=== PATIENT | male | born 1960 | race Caucasian/White ===

== ENCOUNTER 2016-05-19 12:38 | Emergency (ER) | payer BC ==
[2016-05-19 12:47] VITALS: BP 153/100
[2016-05-19] MEDS ORDERED: ONDANSETRON 4 MG TAB.RAPDIS PO ONE (13:12)
--- NOTE | 2016-05-19 13:13 | ERNOTE ---
Medical Problem HPI - Narrative Date of Service: 05/19/16 - General Chief Complaint: Nausea/Vomiting Time Seen by Provider: 05/19/16 12:53 Source: patient - Immun/Allergies/Home Medications Immunizations: IMMUNIZATION HX Immunizations Up to Date Yes History of Influenza Vaccine No Hx Pneumococcal Vaccination No Allergies/Adverse Reactions: Allergies No Known Allergies Allergy (Verified 05/19/16 12:47) Home Medications: HOME MEDICATIONS Aspirin [Aspirin Enteric Coated] 81 mg PO DAILY 09/21/15 [Last Taken Unknown] Ibuprofen [Motrin] 400 mg PO Q6H PRN 09/21/15 [Last Taken Unknown] Lansoprazole [Prevacid] 15 mg PO DAILY 09/21/15 [Last Taken Unknown] Lisinopril [Zestril] 5 mg PO DAILY 09/21/15 [Last Taken Unknown] Naproxen [Naprosyn] 500 mg PO BID #60 tablet 05/19/16 [Last Taken Unknown] Ondansetron [Zofran Odt] 4 mg PO Q6H PRN #20 tab 05/19/16 [Last Taken Unknown] - History of Present History Narrative: Pt presents with body aches, sore throat and nausea. Onset was this morning and it is fluctuating in intensity. Timing: intermittent Severity: moderate Review of Systems - Review of Systems Constitutional: Present: See HPI EYE: Present: no symptoms reported ENT: Present: nose congestion, sore throat Respiratory: Present: no symptoms reported Cardiology: Present: no symptoms reported Gastrointestinal/Abdominal: Present: no symptoms reported Genitourinary: Present: no symptoms reported Musculoskeletal: Present: no symptoms reported Skin: Present: no symptoms reported Neurological: Present: no symptoms reported Endocrine: Present: no symptoms reported Hematologic/Lymphatic: Present: no symptoms reported Psych: Present: no symptoms reported - Patient's Past Medical History Patient History - Medical: GERD Patient History - Cardiac/Respiratory: Hypertension Patient History - Cancer: No Hx of Cancer Patient History - Surgical Procedures: Vasectomy - Family History Father Family History - Medical: , No pertinent hx Family History - Cardiac/Respiratory: No pertinent hx Mother Family History - Medical: , No pertinent hx Family History - Cardiac/Respiratory: No pertinent hx - Social History Living Situations: home Smoking Status: Former smoker Have you smoked in the past 12 months: No Do you dip or chew tobacco: Yes Alcohol Use: occasionally Drug Use: none Physical Exam - Physical Exam General Appearance: Present: wd/wn, alert, mild distress Eye Exam: Normal inspection: bilateral, PERRL: bilateral Ears, Nose, Throat: Present: normal ENT inspection, hearing grossly normal, nasal congestion, other - cobblestone pharynx Neck: Present: normal inspection, nontender Respiratory: Present: no respiratory distress, normal breath sounds, no accessory muscle use, chest nontender, lungs clear Cardiovascular/Chest: Present: regular rate, rhythm, no murmur, normal peripheral pulses Gastrointestinal/Abdominal: Present: normal bowel sounds, nontender, nondistended, soft, no organomegaly Rectal Exam: Present: deferred Back Exam: Present: normal inspection, normal range of motion Extremity Exam: Present: normal inspection, non-tender, no edema, normal range of motion Neurological Exam: Present: alert, oriented, normal mood/affect Skin Exam: Present: normal color, warm/dry Lymphatic Exam: Present: no adenopathy ED Progress - Results and Orders Patient's Lab Results:: I have reviewed the patient's lab results. - Vital Signs Patient's Vital Signs:: I have reviewed the patient's vital signs. Vital Signs: Vital Signs 05/19/16 12:44 Temperature 36.0 C L Pulse Rate 68 Respiratory 14 Rate Blood Pressure 153/100 O2 Sat by Pulse 96 Oximetry - Progress/Reassessment Chief Complaint: Nausea/Vomiting Progress:: Improved - Transfer of Care Expected Disposition: Discharge Departure - Departure Clinical Impression: Viral syndrome Disposition: Home self-care Instructions: Viral Respiratory Infection, [id number] Referrals: Romelia Esqueda MD [Primary Care Provider] - Prescriptions: Naproxen [Naprosyn] 500 mg PO BID #60 tablet Ondansetron [Zofran Odt] 4 mg PO Q6H PRN #20 tab PRN Reason: Nausea And Vomiting
[2016-05-19] MEDS ORDERED: ONDANSETRON 4 MG TAB.RAPDIS ONE (13:17)
== END 2016-05-19 13:53 | disposition home or self-care (01) ==
LOC: ER 12:38
DX: B34.9 Viral infection, unspecified (principal); Z87.891 Personal history of nicotine dependence; K21.9 Gastro-esophageal reflux disease without esophagitis

== ENCOUNTER 2017-03-02 16:34 | Observation (INO) | payer BC ==
[2017-03-02] MEDS ORDERED: ASPIRIN 81 MG TAB.CHEW PO ONE (19:02)
--- NOTE | 2017-03-02 19:10 | ERNOTE ---
Medical Problem HPI - Narrative Date of Service: 03/02/17 - General Chief Complaint: Chest Pain Time Seen by Provider: 03/02/17 18:55 Source: patient Exam Limitations: no limitations - Immun/Allergies/Home Medications Immunizations: IMMUNIZATION HX Immunizations Up to Date Yes History of Influenza Vaccine No Hx Pneumococcal Vaccination No Allergies/Adverse Reactions: Allergies No Known Allergies Allergy (Verified 03/02/17 17:04) Home Medications: HOME MEDICATIONS Aspirin [Aspirin Enteric Coated] 81 mg PO DAILY 09/21/15 [Last Taken Unknown] Lansoprazole [Prevacid] 15 mg PO DAILY 09/21/15 [Last Taken Unknown] Lisinopril [Zestril] 10 mg PO DAILY 09/21/15 [Last Taken Unknown] - History of Present History Narrative: Pt. comes in with c/o not feeling right for 5 hours. Pt. states that his L chest feels heavy, and he is weak with mild SOB and mild nausea. Pt. denies any recent illness, vomiting, diarrhea, cough, nasal congestion, fever, alleviaitng factors, aggravating factors, but states that he took a baby aspirin today. Review of Systems - Review of Systems Constitutional: Present: weakness, fatigue, malaise. Absent: recent illness, fever, chills EYE: Present: no symptoms reported ENT: Present: no symptoms reported Respiratory: Present: shortness of breath. Absent: cough, wheezing Cardiology: Present: chest pain. Absent: palpitations, edema Gastrointestinal/Abdominal: Present: nausea. Absent: vomiting, diarrhea, abdominal pain Genitourinary: Present: no symptoms reported Musculoskeletal: Present: no symptoms reported. Absent: back pain, joint pain Skin: Present: no symptoms reported Neurological: Present: weakness. Absent: headache, dizziness/light-headedness, numbness, tingling All Other Systems: All systems neg except as marked - Patient's Past Medical History Patient History - Medical: GERD Patient History - Cardiac/Respiratory: Hypertension Patient History - Cancer: No Hx of Cancer Patient History - Surgical Procedures: Vasectomy Patient History - Other: None - Family History Father Family History - Medical: , No pertinent hx Family History - Cardiac/Respiratory: No pertinent hx Mother Family History - Medical: , No pertinent hx Family History - Cardiac/Respiratory: No pertinent hx - Social History Living Situations: home Abuse History: No History of abuse Psych History: No pertinent hx Alcohol Use: none Drug Use: none - Immunizations Immunizations Up to Date: Yes Hx Pneumococcal Vaccination: No History of Influenza Vaccine: No Physical Exam - Physical Exam General Appearance: Present: wd/wn, alert, no apparent distress Head Exam: Present: normal inspection, no evidence of injury Eye Exam: Normal inspection: bilateral, PERRL: bilateral, EOMI: bilateral Ears, Nose, Throat: Present: normal ENT inspection, normal pharynx Neck: Present: normal inspection, nontender. Absent: lymphadenopathy (R), lymphadenopathy (L) Respiratory: Present: no respiratory distress, normal breath sounds, no accessory muscle use, chest nontender, lungs clear. Absent: chest tenderness Cardiovascular/Chest: Present: regular rate, rhythm, no murmur, normal peripheral pulses Gastrointestinal/Abdominal: Present: normal bowel sounds, nontender, nondistended, soft, no organomegaly Back Exam: Present: normal inspection Extremity Exam: Present: normal inspection Neurological Exam: Present: alert, oriented, normal mood/affect, no motor/ sensory deficits, bushel girl II-XII nml as tested, normal cerebellar test Skin Exam: Present: warm/dry, pallor. Absent: skin rash ED Progress - Date and Time Seen: Date and Time: 03/02/17 19:54 Discussed with Caio and as pt. pain is not reproducible and does not seem to be GI related feel that this is most likely cardiac and she accepts admission for chest pain R/O [place] - Results and Orders Patient's Lab Results:: I have reviewed the patient's lab results. - Vital Signs Patient's Vital Signs:: I have reviewed the patient's vital signs. Vital Signs: Vital Signs 03/02/17 16:58 Temperature 36.2 C L Pulse Rate 74 Respiratory 12 Rate Blood Pressure 135/90 O2 Sat by Pulse 96 Oximetry - Progress/Reassessment Chief Complaint: Nausea/Vomiting Departure Clinical Impression: Chest pain Qualifiers: Chest pain type: unspecified Qualified Code(s): R07.9 - Chest pain, unspecified - Departure Disposition: [facility] Condition: Fair
[2017-03-02] MEDS ORDERED: ASPIRIN 81 MG TAB.CHEW ONE (19:15)
[2017-03-02] MEDS: NITROGLYCERIN 0.4 MG/TAB BTL SL PRN ×2 (19:18→19:50)
[2017-03-02 19:22] LABS: Hematocrit 45.3 % (42.0-52.0); Hemoglobin 15.5 gm/dL (13.5-18.0); Mean Corpuscular Hemoglobin 30.1 pg (27-31); Mean Corpuscular Hgb Conc 34.2 g/dl (32-36); Mean Platelet Volume 8.7 fl (6.0-9.5); Neutrophil # 4.2 K/mm3 (1.3-6.0); Platelet Count 251 K/mm3 (150-450); Red Blood Count 5.15 M/mm3 (4.7-6.0); Red Cell Distribution Width 12.6 % (11.5-14.0)
[2017-03-02 19:39] LABS: Partial Thrombolplastin Time 27.3 Seconds (24-32)
[2017-03-02 19:41] LABS: ALT 66 U/L (19-67); AST 29 U/L (0-48); Albumin * 3.8 gm/dl (3.4-5.0); Alkaline Phosphatase * 90 U/L (50-170); Anion Gap 12.4 mmol/L (6.8-13.8); BUN/Creatinine Ratio 16.3 (9.0-21.6); Bilirubin, Total 1.2 mg/dL (0.0-1.1); Blood Urea Nitrogen 20 mg/dL (6-23); Ca. Corrected For Albumin 8.8 mg/dL (8.4-10.2); Carbon Dioxide 28.5 mmol/L (24-32.6); Chloride 101 mmol/L (97-106); Glucose * 102 mg/dL (70-110); Potassium 4.9 mmol/L (3.4-4.6); Sodium 137 mmol/L (132-142); Total Protein 7.7 gm/dL (6.2-8.2)
[2017-03-02 19:43] LABS: Troponin I Less than 0.017 ng/ml (0.00-0.10)
[2017-03-02] MEDS ORDERED: guaiFENesin/DEXTROMETHORPHAN 118 ML BTL PO PRN (21:00)
[2017-03-02] MEDS ORDERED: NICOTINE 21 MG PATC TD SCH (21:00)
[2017-03-02] MEDS ORDERED: ALBUTEROL SULFATE 2.5 MG/0.5 ML VIAL.NEB IH PRN (21:18)
--- NOTE | 2017-03-02 21:24 | HP ---
Chief Complaint - Chief Complaint Date of Service: 03/02/17 Time of Service: 20:41 Chief Complaint: chest pain History of Present Illness: 56 years old male adm to the hospital from ER with reports of substernal chest pain radiating to left arm.PMH significant for Hypertension, GERD and chews tobacco. Per before work today pt stated he was feeling nauseated. While at work he continue to feel nauseated, he was lifting a 50lb item when he had sudden onset of chest pain. The pain radiated to his left arm, with associated s /s shortness of breath. He denies diaphoresis, palpitation, vomiting, blurred vision or headache. stated he has a non productive cough that has been ongoing for over a month. Per pt has been having intermittent chest discomfort for several years and last stress test was in [place] 7yrs ago.In ER he was given nitro and aspirin, he report pain has since dissipated.Initial troponin 0.017---> serial troponin pending EKG No ST/T changes, will repeat EKG. CXR:Findings compatible with reactive airway disease vs acute on chronic bronchitis, may also consider COPD as pt with history of tobacco use.Will adm for observation, repeat EKG and serial cardiac markers. Plan of care discussed with pt and they verbalized understanding and agrees. - Patient's Past Medical History Patient History - Medical: GERD Patient History - Cardiac/Respiratory: Hypertension, Hyperlipidemia Patient History - Cancer: No Hx of Cancer Patient History - Surgical Procedures: Vasectomy, Orthopedic - Right knee orthoscopy Patient History - Other: None - Family History Father Family History - Medical: , No pertinent hx Family History - Cardiac/Respiratory: No pertinent hx Family History - Cancer: Stomach Mother Family History - Medical: , No pertinent hx Family History - Cardiac/Respiratory: No pertinent hx Family History - Cancer: Breast - Social History Living Situations: spouse Abuse History: No History of abuse Psych History: No pertinent hx Do you dip or chew tobacco: Yes - daily Alcohol Use: occasionally - 1-2 beers daily Drug Use: none - Immunizations Immunizations Up to Date: Yes Hx Pneumococcal Vaccination: No History of Influenza Vaccine: No Review Of Systems (GEN) - Review of Systems Generalized/Overall Review: Present: No Symptoms Reported EENTM: Present: No Symptoms Reported Respiratory: Present: Cough, Shortness of Breath - on exertion only Cardiac: Present: Chest Pain Abdominal: Present: Nausea Genitourinary: Present: No Symptoms Reported Musculoskeletal: Present: No Symptoms Reported Neurological: Present: No Symptoms Reported Skin: Present: No Symptoms Reported Endocrine: Present: No Symptoms Reported Immunizations: IMMUNIZATION HX Immunizations Up to Date Yes History of Influenza Vaccine No Hx Pneumococcal Vaccination No Allergies/Adverse Reactions: Allergies Allergy/AdvReac Type Severity Reaction Status Date / Time No Known Allergies Allergy Verified 03/02/17 17:04 Home Medications: HOME MEDICATIONS Aspirin [Aspirin Enteric Coated] 81 mg PO DAILY 09/21/15 [Last Taken Unknown] Lansoprazole [Prevacid] 15 mg PO DAILY 09/21/15 [Last Taken Unknown] Lisinopril [Zestril] 10 mg PO DAILY 09/21/15 [Last Taken Unknown] Exam - Exam Vital Signs: Vital Signs - Last Taken Temp 36.7 C 03/02/17 20:21 Pulse 63 03/02/17 20:21 Resp 17 03/02/17 20:21 BP 116/78 03/02/17 20:21 Pulse Ox 96 03/02/17 20:21 Constitutional: Present: Alert, Oriented x3, Cooperative, No distress ENT Exam: Present: normal ENT inspection Eye Exam: bilateral eye: normal inspection Neck: Present: full range of motion Breasts: Present: Exam deferred Respiratory: Present: chest non-tender, lungs clear, normal breath sounds, no respiratory distress Cardiovascular/Chest: Present: normal peripheral pulses, regular rate, rhythm, no edema, no gallop Peripheral Pulses: dorsalis-pedis (R): 3+, dorsalis-pedis (L): 3+ Abdomen: Present: Normal bowel sounds, soft, nontender, nondistended, no rebound tenderness /Rectal: Present: Exam deferred Extremity: Present: normal range of motion, non-tender, normal inspection Skin Exam: Present: normal color, warm/dry, no cyanosis Neurologic: Present: oriented x 3 Appearance: Present: appropriate appearance Eye contact: Present: cooperative Thoughts: Present: normal thought pattern Diagnostic Studies: Laboratory Results WBC 7.0 K/mm3 (4.0-10.5) 03/02/17 19:18 RBC 5.15 M/mm3 (4.7-6.0) 03/02/17 19:18 Hgb 15.5 gm/dL (13.5-18.0) 03/02/17 19:18 Hct 45.3 % (42.0-52.0) 03/02/17 19:18 MCV 88.0 fl (78-100) 03/02/17 19:18 MCH 30.1 pg (27-31) 03/02/17 19:18 MCHC 34.2 g/dl (32-36) 03/02/17 19:18 RDW 12.6 % (11.5-14.0) 03/02/17 19:18 Plt Count 251 K/mm3 (150-450) 03/02/17 19:18 MPV 8.7 fl (6.0-9.5) 03/02/17 19:18 Immature Gran % (Auto) 0.30 % (0.001-0.429) 03/02/17 19:18 Immature Gran # (Auto) 0.02 K/mm3 (0.000-0.0310) 03/02/17 19:18 Neutrophils % 61.0 % (42-75.0) 03/02/17 19:18 Lymphocytes % 26.2 % (20-51) 03/02/17 19:18 Monocytes % 10.2 % (0.0-9) H 03/02/17 19:18 Eosinophils % 1.4 % (0.0-3.0) 03/02/17 19:18 Basophils % 0.9 % (0.0-1.0) 03/02/17 19:18 Nucleated RBC % 0.0 k/mm3 (0-1) 03/02/17 19:18 Neutrophils # 4.2 K/mm3 (1.3-6.0) 03/02/17 19:18 Lymphocytes # 1.8 k/mm3 (1.5-3.5) 03/02/17 19:18 Monocytes # 0.7 k/mm3 (0.0-1.0) 03/02/17 19:18 Eosinophils # 0.1 k/mm3 (0.0-0.7) 03/02/17 19:18 Absolute Basophils 0.1 k/mm3 (0.0-0.1) 03/02/17 19:18 PT 10.0 Seconds (9.0-11.0) 03/02/17 19:18 INR (Anticoag Therapy) 1.00 INR (0.90-1.10) 03/02/17 19:18 PTT ([place]) 27.3 Seconds (24-32) 03/02/17 19:18 Sodium 137 mmol/L (132-142) 03/02/17 19:18 Plasma Sodium 137 mmol/L (130-142) 03/02/17 19:18 Potassium 4.9 mmol/L (3.4-4.6) H 03/02/17 19:18 Chloride 101 mmol/L (97-106) 03/02/17 19:18 Carbon Dioxide 28.5 mmol/L (24-32.6) 03/02/17 19:18 Anion Gap 12.4 mmol/L (6.8-13.8) 03/02/17 19:18 BUN 20 mg/dL (6-23) 03/02/17 19:18 Creatinine 1.23 mg/dL (0.4-1.4) 03/02/17 19:18 Est GFR (Non-Af Amer) 64 mL/min (60-130) 03/02/17 19:18 BUN/Creatinine Ratio 16.3 (9.0-21.6) 03/02/17 19:18 Random Glucose 102 mg/dL (70-110) 03/02/17 19:18 Calcium 9.0 mg/dL (7.9-10.9) 03/02/17 19:18 Calcium Adj for Albumin 8.8 mg/dL (8.4-10.2) 03/02/17 19:18 Total Bilirubin 1.2 mg/dL (0.0-1.1) H 03/02/17 19:18 AST 29 U/L (0-48) 03/02/17 19:18 ALT 66 U/L (19-67) 03/02/17 19:18 Alkaline Phosphatase 90 U/L (50-170) 03/02/17 19:18 Troponin I Less than 0.017 ng/ml (0.00-0.10) 03/02/17 19:18 Total Protein 7.7 gm/dL (6.2-8.2) 03/02/17 19:18 Albumin 3.8 gm/dl (3.4-5.0) 03/02/17 19:18 CXR: findings compatible with reactive airway disease vs acute on chronic bronchitis, may also consider COPD Assessment/Plan - Narrative Narrative: Chest pain-probable muscular-skeletal stain from consistent cough pt stated he was having chest pain and shortness of breath with exertion while at work. He was lifting approximately 50lb item when he had sudden onset of chest pain Per pt have been having chest discomfort for several years and last stress test was in [place] 7yrs ago In ER he was given nitro and aspirin, he report pain has since dissipated. Initial troponin 0.017---> serial troponin pending EKG No ST/T changes, will repeat EKG CXR:Findings compatible with reactive airway disease vs acute on chronic bronchitis, may also consider COPD Bronchitis vs COPD Per pt been having a non-productive cough over a month pt hx of chewing tobacco CXR:Findings compatible with reactive airway disease vs acute on chronic bronchitis, may also consider COPD Initiated Robitussin and albuterol PRN Hypertension- stable On adm BP 116/78 Monitor vs q shift and PRN as indicated May resume home dose of medications Hyperlipidemia Lipid panel pending pt stated he was taken off medications and using diet management GERD May resume home medication Substance abuse chew tobacco Cessation edu Nicotine patch Code status: Full GI ppx: Pepcid VTE ppx: Ambulate Time 40 minutes and case discussed with Dr Antunez May consider out-pt stress test upon discharge - Assessment/Plan (1) Bronchitis Problem: Acute (2) Chest pain Problem: Acute Qualifiers: Chest pain type: unspecified Qualified Code(s): R07.9 - Chest pain, unspecified (3) Hypertension Problem: Acute (4) Hyperlipidemia Problem: Acute
[2017-03-03 06:10] LABS: Chol/HDL Risk Ratio 4.6 mg/dL (3.3-5.0); Cholesterol 211 mg/dL (0-200); HDL Cholesterol 45 mg/dL (40-60); LDL Cholesterol 148 mg/dL (70-130); Triglycerides 92 mg/dL (30-200); VLDL Cholesterol 18 mg/dL (5-40)
[2017-03-03 06:15] LABS: Troponin I Less than 0.017 ng/ml (0.00-0.10)
[2017-03-03] MEDS ORDERED: PANTOPRAZOLE SODIUM 20 MG TABLET.DR PO SCH (07:00)
[2017-03-03 07:46] VITALS: BP 141/85
[2017-03-03] MEDS ORDERED: LISINOPRIL 5 MG TABLET PO SCH (09:00)
[2017-03-03] MEDS ORDERED: LISINOPRIL 10 MG TABLET PO SCH (09:00)
[2017-03-03] MEDS ORDERED: ASPIRIN 81 MG TABLET.DR PO SCH (09:00)
--- NOTE | 2017-03-03 09:02 | DS ---
(1) Chest pain Problem: Acute Qualifiers: Chest pain type: unspecified Qualified Code(s): R07.9 - Chest pain, unspecified Description of Stay: ADMISSION DATE: 03/02/2017 DISCHARGE DATE: 03/03/2017 ADMISSION HPI KAYE Valdivia: 56 years old male adm to the hospital from ER with reports of substernal chest pain radiating to left arm.PMH significant for Hypertension, GERD and chews tobacco. Per before work today pt stated he was feeling nauseated. While at work he continue to feel nauseated, he was lifting a 50lb item when he had sudden onset of chest pain. The pain radiated to his left arm, with associated s /s shortness of breath. He denies diaphoresis, palpitation, vomiting, blurred vision or headache. stated he has a non productive cough that has been ongoing for over a month. Per pt has been having intermittent chest discomfort for several years and last stress test was in [place] 7yrs ago.In ER he was given nitro and aspirin, he report pain has since dissipated.Initial troponin 0.017---> serial troponin pending EKG No ST/T changes, will repeat EKG. CXR:Findings compatible with reactive airway disease vs acute on chronic bronchitis, may also consider COPD as pt with history of tobacco use.Will adm for observation, repeat EKG and serial cardiac markers. Plan of care discussed with pt and they verbalized understanding and agrees. HOSPITAL COURSE: The patient was admitted to the hospital, observation status, for chest pain which is felt to be most likely musculoskeletal in nature. The patient was monitored on telemetry overnight and his cardiac enzymes were trended and unremarkable. EKG was also unremarkable for acute signs of ischemia. The patient was discharged home in stable condition and instructed to complete a standard treadmill exercise stress test next week. The patient was also instructed to follow up with his primary care physician within the next week. FOLLOW-UP APPOINTMENTS: -Regular Exercise Stress Test as an outpatient -Follow-up with PCP, Lidia Esqueda, within 1 week NEW OR CHANGED MEDICATIONS: None DISCONTINUED MEDICATIONS: None RADIOLOGY REPORTS: PA and lateral chest x-ray on 03/02/2017 showed: Findings compatible with acute or chronic bronchitis versus reactive airway disease. Also considered COPD/ emphysema, if the patient has history of smoking. No focal findings. Procedures Performed: none Results and Findings: Laboratory Tests 03/02/17 03/02/17 03/02/17 19:18 19:18 19:18 WBC 7.0 Hgb 15.5 Hct 45.3 Plt Count 251 PT 10.0 INR (Anticoag Therapy) 1.00 PTT ([place]) 27.3 Plasma Sodium 137 Potassium 4.9 H Chloride 101 Carbon Dioxide 28.5 Anion Gap 12.4 BUN 20 Creatinine 1.23 Est GFR (Non-Af Amer) 64 BUN/Creatinine Ratio 16.3 Random Glucose 102 Calcium 9.0 Calcium Adj for Albumin 8.8 Total Bilirubin 1.2 H AST 29 ALT 66 Alkaline Phosphatase 90 Troponin I Less than 0.017 Total Protein 7.7 Albumin 3.8 Triglycerides Cholesterol LDL Cholesterol VLDL Cholesterol HDL Cholesterol Cholesterol/HDL Ratio 03/03/17 03/03/17 00:52 05:35 WBC Hgb Hct Plt Count PT INR (Anticoag Therapy) PTT ([place]) Plasma Sodium Potassium Chloride Carbon Dioxide Anion Gap BUN Creatinine Est GFR (Non-Af Amer) BUN/Creatinine Ratio Random Glucose Calcium Calcium Adj for Albumin Total Bilirubin AST ALT Alkaline Phosphatase Troponin I Less than 0.017 Less than 0.017 Total Protein Albumin Triglycerides 92 Cholesterol 211 H LDL Cholesterol 148 H VLDL Cholesterol 18 HDL Cholesterol 45 Cholesterol/HDL Ratio 4.6 Discharge Disposition: Home self care Disposition: Home self-care Condition: Stable Discharge Activity: Activity as tolerated Discharge Diet: General/regular food, Resume usual diet Problem Oriented Discharge Instructions to Patient/Family: Chest Wall Pain, [id number] Additional Patient Instructions (free text): -Regular Exercise Stress Test as an outpatient on 03/07/17 at 8:00am. -Follow-up with PCP, Lidia Esqueda, within 1 week Complete Home Medications List: Complete Home Medication List: Aspirin [Aspirin Enteric Coated] 81 mg PO DAILY 09/21/15 Lansoprazole [Prevacid] 15 mg PO DAILY 09/21/15 Lisinopril [Zestril] 10 mg PO DAILY 09/21/15 Amb Orders for Discharge: Regular Exercise Stress Test Location: Determined By Patient
[2017-03-03] MEDS ORDERED: REMOVE PATCH 1 PATCH PATCH TP SCH (21:00)
[2017-03-03] MEDS ORDERED: SIMVASTATIN 20 MG TABLET PO SCH (21:00)
== END 2017-03-03 10:18 | disposition home or self-care (01) ==
LOC: ER 16:34 → AMB 19:04 → MS 19:57
PROVIDERS: ADMIT Nurse Practitioner; ATTEND Internal Medicine
DX: R07.89 Other chest pain (principal); J41.0 Simple chronic bronchitis; F17.220 Nicotine dependence, chewing tobacco, uncomplicated; I10 Essential (primary) hypertension; K21.9 Gastro-esophageal reflux disease without esophagitis; E78.5 Hyperlipidemia, unspecified
CPT/HCPCS: 36415; 71020; 80053; 80061; 84484; 85025; 85610; 85730; 93005; 99285; G0378

== ENCOUNTER 2017-03-06 10:43 | Emergency (ER) | payer BC ==
--- NOTE | 2017-03-06 14:15 | ERNOTE ---
Abdominal HPI - Narrative Date of Service: 03/06/17 - General Chief Complaint: Abdominal Pain Time Seen by Provider: 03/06/17 14:06 Source: patient Exam Limitations: no limitations - Immun/Allergies/Home Medications Immunizatons: IMMUNIZATION HX Immunizations Up to Date Yes History of Influenza Vaccine No Hx Pneumococcal Vaccination No Allergies/Adverse Reactions: Allergies No Known Allergies Allergy (Verified 03/06/17 10:53) Home Medications: HOME MEDICATIONS Aspirin [Aspirin Enteric Coated] 81 mg PO DAILY 09/21/15 [Last Taken Unknown] Lansoprazole [Prevacid] 15 mg PO DAILY 09/21/15 [Last Taken Unknown] Lisinopril [Zestril] 10 mg PO DAILY 09/21/15 [Last Taken Unknown] Lansoprazole [Prevacid] 30 mg PO DAILY #14 cap 03/06/17 [Last Taken Unknown] Sucralfate [Carafate Suspension] 1 g PO ACHS 14 Days #560 ml 03/06/17 [Last Taken Unknown] - Pain Score Pain Score #1 Pain Score: 3 Abdominal Pain Onset Location: epigastric Pain Radiation: no radiation Pain Score #2 Pain Score: 3 Abdominal Pain Onset Location: other - L. anterior chest Pain Radiation: no radiation - History of Present Illness Narrative: 56yo, M, presents to ER with epigastric pain described as a burning sensation, he notes he has also felt some reflux come up his esophagus today. Symptoms intermittent for the past week, along with nausea and decreased appetite. notes abd bloating for several months, but has noted the abd to appear more distended over the past week. He also reports a pins and needles pain to his L. anterior chest, which has been present since 03/02/17. He describes this pain as mostly constant, but does improve at times.He was admitted to [facility] for observation to r/o cardiac event. Trop neg t/o hospital stay. Pain present at discharge and denies any worsening of pain since discharge. Date (Duration): 03/03/17 Timing: intermittent Modifying Factors - (Improves): Present: antacids - Tums (improvement for short time) Modifying Factors - (Worsens): Present: eating, lying down - worsens epigastric pain, movement - of arms, back and position changes worsens L. chest wall pain Associated Symptoms: Present: chest pain - L. anterior chest, heartburn, nausea , swelling/mass in abdomen. Absent: back pain, neck pain, diaphoresis, diarrhea -gross blood, vomiting, shortness of breath, syncope Prior Abdominal Problems: Present: none Prior Treatment: Present: recently hospitalized Review of Systems - Review of Systems Constitutional: Present: fatigue - chronic . Absent: fever, weakness ENT: Absent: ear pain, nose congestion, sore throat Respiratory: Present: cough. Absent: shortness of breath, orthopnea, wheezing Cardiology: Present: chest pain - L. chest. Absent: palpitations, syncope, edema Gastrointestinal/Abdominal: Present: nausea, abdominal pain. Absent: vomiting, diarrhea, constipation Genitourinary: Absent: frequency, pain, dysuria, hematuria Musculoskeletal: Absent: back pain Skin: Absent: rash - Patient's Past Medical History Patient History - Medical: GERD Patient History - Cardiac/Respiratory: Hypertension, Hyperlipidemia Patient History - Cancer: No Hx of Cancer Patient History - Surgical Procedures: Vasectomy, Orthopedic Patient History - Other: None - Family History Father Family History - Medical: , No pertinent hx Family History - Cardiac/Respiratory: No pertinent hx Family History - Cancer: Stomach Mother Family History - Medical: , No pertinent hx Family History - Cardiac/Respiratory: No pertinent hx Family History - Cancer: Breast - Social History Living Situations: home Abuse History: No History of abuse Psych History: No pertinent hx - Immunizations Immunizations Up to Date: Yes Hx Pneumococcal Vaccination: No History of Influenza Vaccine: No Physical Exam - Physical Exam General Appearance: Present: wd/wn, alert, no apparent distress Neck: Present: normal inspection Respiratory: Present: normal breath sounds, lungs clear, decreased breath sounds - mild. Absent: chest tenderness, crackles, rhonchi, wheezing Cardiovascular/Chest: Present: regular rate, rhythm, no murmur Gastrointestinal/Abdominal: Present: normal bowel sounds, tenderness - LLQ, LUQ , epigastric, distended. Absent: rebound, McBurney sign Back Exam: Present: normal inspection, normal range of motion - denies pain with ROm, no CVA tenderness ED Progress - Date and Time Seen: Date and Time: 03/06/17 17:51 Reviewed xray, lab and CT results with pt. CT was performed due to concern for diverticulitis with LLQ pain, along with abd distention, which noted had been increasing over the last few months. Reviewed fatty liver infiltrates and need to f/u with his PCP. Pt v/u. He does note he has been using Ibuprofen, discussed that this could worsen symptoms and to avoid at this time. - Results and Orders Patient's Lab Results:: I have reviewed the patient's lab results. - Vital Signs Patient's Vital Signs:: I have reviewed the patient's vital signs. Vital Signs: Vital Signs 03/06/17 10:49 Temperature 36.7 C Pulse Rate 85 Respiratory 12 Rate Blood Pressure 126/83 O2 Sat by Pulse 97 Oximetry - X-Ray X-Ray #1 X-Ray: chest Interpretation: Reviewed by me X-ray Comments: [facility] PATIENT RADIOLOGY STUDY REPORT Patient Patient Name:KELLY GUTIERREZ Date: 1960 Sex: M Order Number: [id number] Unique Exam ID: [id number] Exam Requested: CXRPALAT - Chest PA Lateral * Date Scheduled: 03-06-2017 02:20 PM Study Priority: Requesting Service: Requesting Physician: Kayleigh Martínez Reason for Exam: cough, L. anterior chest pain Radiological Report : [facility] [address] [place] [address] NAME: KELLY GUTIERREZ : 1960 MR #: [id number] CC: Romelia Esqueda MD LOC: [facility] DATE: X-RAY REPORT [id number] RAD/Chest PA Lateral * Exam Date: 03/06/2017 14:20 Ordering Physician: Kayleigh Martínez HISTORY: cough, L. anterior chest pain TWO VIEW CHEST Comparison: 03/02/2017 Technique: Upright frontal and lateral views of the chest were obtained. Findings: The cardiac silhouette is within normal limits of size. The mediastinum and hilum are with in normal limits. The lung benavides are clear. I do not see evidence for an infiltrate, effusion or pulmonary edema. IMPRESSION: 1. STABLE CHEST; NO ACUTE CARDIOPULMONARY PROCESS. Electronically signed by Jesus García M.D.. Jesus García MD Dict: 03/06/17 1629 Typed: 03/06/17 1629/ 03/06/17 1631 03/06/17 1634 , Approved by: Jesus García Approval Date: 03-06-2017 Approval Time: 04:29 PM THIS REPORT WAS RECEIVED FROM THE [employer] [facility] - CT/Ultrasound CT/Ultrasound Narrative: [facility] PATIENT RADIOLOGY STUDY REPORT Patient Patient Name:KELLY GUTIERREZ Date: 1960 Sex: M Order Number: [id number] Unique Exam ID: [id number] Exam Requested: ABDPELW - CT Abdomen/Pelvis W/C * Date Scheduled: 03-06-2017 02:21 PM Study Priority: Requesting Service: Requesting Physician: Kayleigh Martínez Reason for Exam: abd pain, LLQ tenderness Radiological Report : [place] [address] NAME: KELLY GUTIERREZ : 1960 MR #: [id number] CC: Romelia Esqueda MD LOC: ER ADM DATE: X-RAY REPORT [id number] CT/CT Abdomen/Pelvis W/C * Exam Date: 03/06/2017 14:21 Ordering Physician: Kayleigh Martínez HISTORY: Midline to left lower quadrant pain and tenderness for four days EN[address] CT SCAN OF THE ABDOMEN AND ENHANCED CT SCAN OF THE PELVIS. COMPARISON: NONE Technique: Initially, multiple axial images were obtained through the abdomen during the portal venous phase of enhancement. Delayed images were obtained through the abdomen and pelvis. Coronal reconstructions were obtained. Oral contrast was utilized. Individualized dose optimization technique was used for the performed procedure including automated exposure control, adjustment of the mA and/or kV according to patient size and/or the iterative reconstruction technique. Findings: The visualized lung bases are clear. I do not see evidence for free air in the abdomen. The liver demonstrates a somewhat geographic low-density pattern involving the right lobe. This may reflect asymmetric fatty infiltration but other etiologies cannot be totally excluded. Clinical correlation required. The portal vein, superior mesenteric vein, and splenic vein appear to be normally opacified. A gallbladder is in place and I do not see evidence for calcified gallstones. The spleen is of normal size and is homogenous in appearance. The adrenal glands are within normal limits. The pancreas is with in normal limits. The abdominal aorta is of normal caliber. I do not see evidence for retroperitoneal adenopathy on this study. There is a small fat- containing umbilical hernia. The right and left renal parenchyma is normal in appearance. The kidneys demonstrate bilateral symmetric excretion of contrast and the ureters are of normal caliber on delayed images. The stomach is partially distended and is grossly normal appearance. The small bowel is of normal caliber. The appendix is identified and appears normal. The colon is suboptimally evaluated, but I' m not convinced of a definable colon lesion. There is mild diverticulosis involving the descending colon without definable diverticulitis CT scan of pelvis: The urinary bladder is poorly distended and is grossly normal in appearance. The prostate is not enlarged. IMPRESSION: 1. GEOGRAPHIC LOW DENSITY PATTERN TO THE RIGHT LOBE LIVER, WHICH I SUSPECT REFLECTS FATTY INFILTRATION. CLINICAL CORRELATION IS REQUIRED. 2. SMALL FAT-CONTAINING UMBILICAL HERNIA. 3. MILD DIVERTICULOSIS INVOLVING DESCENDING COLON WITHOUT DEFINABLE DIVERTICULITIS. 4. CLINICAL CORRELATION REQUIRED Electronically signed by Jesus García M.D.. Jesus García MD Dict: 03/06/17 1634 Typed: 03/06/17 1634/ 03/06/17 1646 03/06/17 1649 , Approved by: Jesus García Approval Date: 03-06-2017 Approval Time: 04:34 PM THIS REPORT WAS RECEIVED FROM THE [employer] [facility] - Progress/Reassessment Chief Complaint: Abdominal Pain Progress:: Improved Departure Clinical Impression: Gastritis Qualifiers: Gastritis type: unspecified gastritis Chronicity: acute Gastritis bleeding: without bleeding Qualified Code(s): K29.00 - Acute gastritis without bleeding - Departure Disposition: Home self-care Condition: Good Instructions: Gastritis, Adult, [id number] Additional Instructions: [place] diet for the next several days Avoid use of Ibuprofen Increase Prevacid to 30mg daily for the next 2 weeks Schedule follow up with your primary care doctor for re-evaluation and follow up on CT results Referrals: Romelia Esqueda MD [Primary Care Provider] - Prescriptions: Lansoprazole [Prevacid] 30 mg PO DAILY #14 cap Sucralfate [Carafate Suspension] 1 g PO ACHS 14 Days #560 ml
[2017-03-06] MEDS ORDERED: DIATRIZOATE MEGLUMINE, SODIUM 30 ML BTL PO ONE (14:31)
[2017-03-06 14:33] LABS: Hematocrit 47.1 % (42.0-52.0); Hemoglobin 15.9 gm/dL (13.5-18.0); Mean Cell Volume 88.4 fl (78-100); Mean Corpuscular Hemoglobin 29.8 pg (27-31); Mean Corpuscular Hgb Conc 33.8 g/dl (32-36); Mean Platelet Volume 8.8 fl (6.0-9.5); Neutrophil # 6.2 K/mm3 (1.3-6.0); Neutrophil % 66.2 % (42-75.0); Platelet Count 262 K/mm3 (150-450); Red Blood Count 5.33 M/mm3 (4.7-6.0); Red Cell Distribution Width 12.7 % (11.5-14.0); White Blood Count 9.4 K/mm3 (4.0-10.5)
[2017-03-06 14:52] LABS: ALT 58 U/L (19-67); AST 24 U/L (0-48); Albumin * 3.8 gm/dl (3.4-5.0); Alkaline Phosphatase * 90 U/L (50-170); Amylase * 49 U/L (25-115); Anion Gap 11.8 mmol/L (6.8-13.8); Bilirubin, Total 1.2 mg/dL (0.0-1.1); Blood Urea Nitrogen 17 mg/dL (6-23); Ca. Corrected For Albumin 9.5 mg/dL (8.4-10.2); Calcium * 9.7 mg/dL (7.9-10.9); Carbon Dioxide 27.8 mmol/L (24-32.6); Chloride 102 mmol/L (97-106); Glucose * 100 mg/dL (70-110); Lipase 90 U/L (73-393); Potassium 4.6 mmol/L (3.4-4.6); Sodium 137 mmol/L (132-142); Total Protein 7.9 gm/dL (6.2-8.2)
[2017-03-06 14:54] LABS: Troponin I Less than 0.017 ng/ml (0.00-0.10)
[2017-03-06 16:03] LABS: Urine Bilirubin Negative (NEGATIVE); Urine Blood Negative /ul (NEGATIVE); Urine Ketone Negative (NEGATIVE); Urine Nitrite Negative (NEGATIVE); Urine Protein Negative (NEGATIVE); Urine Specific Gravity >=1.030 SP.GR. (1.005-1.030); Urine Urobilinogen Normal (NORMAL); Urine pH 5.5 pH (5.0-7.0)
[2017-03-06] MEDS ORDERED: NORMAL SALINE 1,000 ML IV ONE (16:08)
[2017-03-06 16:22] LABS: Urine Appearance Clear; Urine Bacteria 1+; Urine Color Yellow; Urine Mucus Moderate - 2+; Urine RBC None Seen /hpf (0-5); Urine WBC 0-5 /hpf (0-5)
[2017-03-06 19:02] VITALS: BP 127/84
== END 2017-03-06 17:50 | disposition home or self-care (01) ==
LOC: ER 10:43
DX: K29.00 Acute gastritis without bleeding (principal)

== ENCOUNTER 2017-03-21 15:45 | Emergency (ER) | payer BC ==
[2017-03-21] MEDS ORDERED: ASPIRIN 81 MG TAB.CHEW PO ONE (16:08)
[2017-03-21] MEDS ORDERED: ASPIRIN 81 MG TAB.CHEW ONE (16:14)
--- NOTE | 2017-03-21 16:15 | ERNOTE ---
Medical Problem HPI - General Chief Complaint: Screening, Blood Pressure Time Seen by Provider: 03/21/17 16:04 Source: patient Exam Limitations: no limitations - Immun/Allergies/Home Medications Immunizations: IMMUNIZATION HX Immunizations Up to Date No History of Influenza Vaccine No Hx Pneumococcal Vaccination No Allergies/Adverse Reactions: Allergies No Known Allergies Allergy (Verified 03/06/17 10:53) Home Medications: HOME MEDICATIONS Lisinopril [Zestril] 10 mg PO DAILY 09/21/15 [Last Taken Unknown] Lansoprazole [Prevacid] 30 mg PO DAILY #14 cap 03/06/17 [Last Taken Unknown] Cyclobenzaprine HCl [Flexeril] 10 mg PO TID PRN #30 tab 03/21/17 [Last Taken Unknown] Naproxen [Naprosyn] 500 mg PO BID #60 tablet 03/21/17 [Last Taken Unknown] - History of Present History Narrative: Patient was here for a blood pressure check and patient stated he was having some paraspinal pain medial to the scapula on the left as well as some pain in the triceps muscle on the left side as well. "Patient has no history of heart problems other than his high blood pressure seemed reasonable to do a least a workup to make sure this pain this been going on for 4 hours is not cardiac. Timing: constant Severity: moderate Review of Systems - Review of Systems Constitutional: Present: See HPI EYE: Present: no symptoms reported ENT: Present: no symptoms reported Respiratory: Present: no symptoms reported Cardiology: Present: See HPI Gastrointestinal/Abdominal: Present: no symptoms reported Genitourinary: Present: no symptoms reported Musculoskeletal: Present: back pain Skin: Present: no symptoms reported Neurological: Present: no symptoms reported Endocrine: Present: no symptoms reported Hematologic/Lymphatic: Present: no symptoms reported Psych: Present: no symptoms reported - Patient's Past Medical History Patient History - Medical: GERD Patient History - Cardiac/Respiratory: Hypertension, Hyperlipidemia Patient History - Cancer: No Hx of Cancer Patient History - Surgical Procedures: Vasectomy, Orthopedic Patient History - Other: None - Family History Father Family History - Medical: , No pertinent hx Family History - Cardiac/Respiratory: No pertinent hx Family History - Cancer: Stomach Mother Family History - Medical: , No pertinent hx Family History - Cardiac/Respiratory: No pertinent hx Family History - Cancer: Breast - Social History Living Situations: home Abuse History: No History of abuse Psych History: No pertinent hx Smoking Status: Never smoker Have you smoked in the past 12 months: No Do you dip or chew tobacco: Yes Alcohol Use: rarely Drug Use: none - Immunizations Immunizations Up to Date: No Hx Pneumococcal Vaccination: No History of Influenza Vaccine: No Physical Exam - Physical Exam General Appearance: Present: wd/wn, alert, mild distress Head Exam: Present: normal inspection Eye Exam: Normal inspection: bilateral, PERRL: bilateral Ears, Nose, Throat: Present: normal ENT inspection, H, normal pharynx Neck: Present: normal inspection, nontender Respiratory: Present: no respiratory distress, normal breath sounds, no accessory muscle use, chest nontender, lungs clear Cardiovascular/Chest: Present: regular rate, rhythm, no murmur, normal peripheral pulses Gastrointestinal/Abdominal: Present: normal bowel sounds, nontender, nondistended, soft, no organomegaly Rectal Exam: Present: deferred Back Exam: Present: muscle spasm, other - back pain is reproducible on palpation as well as some residual pain on deep breath Extremity Exam: Present: normal inspection, non-tender, no edema, normal range of motion Neurological Exam: Present: alert, oriented, normal mood/affect Skin Exam: Present: normal color, warm/dry Lymphatic Exam: Present: no adenopathy ED Progress - Results and Orders Patient's Lab Results:: I have reviewed the patient's lab results. - Vital Signs Patient's Vital Signs:: I have reviewed the patient's vital signs. Vital Signs: Vital Signs 03/21/17 03/21/17 15:46 15:52 Temperature 36.1 C L Pulse Rate 66 Respiratory 16 Rate Blood Pressure 136/95 139/90 O2 Sat by Pulse 98 Oximetry - EKG EKG: NSR - Progress/Reassessment Chief Complaint: Screening, Blood Pressure Plan - Plan Plan: Patient has had the back pain for over 4 hours with a negative troponin, no changes on EKG and reproducible pain on palpation. I suspect this is more back pain with a peripheral neuralgia coming out of T4 on the left. Patient be started on Flexeril and Naprosyn and he will follow up with his family physician as needed. Departure Clinical Impression: Neuralgia Back pain Qualifiers: Back pain location: thoracic back pain Chronicity: acute Back pain laterality: left Qualified Code(s): M54.6 - Pain in thoracic spine - Departure Disposition: Home self-care Condition: Good Instructions: Thoracic Strain, [id number] Referrals: Romelia Esqueda MD [Primary Care Provider] - Prescriptions: Cyclobenzaprine HCl [Flexeril] 10 mg PO TID PRN #30 tab PRN Reason: MUSCLE SPASMS Naproxen [Naprosyn] 500 mg PO BID #60 tablet
[2017-03-21 16:21] LABS: Hematocrit 42.9 % (42.0-52.0); Hemoglobin 14.5 gm/dL (13.5-18.0); Mean Cell Volume 87.7 fl (78-100); Mean Corpuscular Hemoglobin 29.7 pg (27-31); Mean Corpuscular Hgb Conc 33.8 g/dl (32-36); Mean Platelet Volume 8.8 fl (6.0-9.5); Neutrophil # 3.8 K/mm3 (1.3-6.0); Platelet Count 217 K/mm3 (150-450); Red Blood Count 4.89 M/mm3 (4.7-6.0); Red Cell Distribution Width 12.5 % (11.5-14.0); White Blood Count 6.2 K/mm3 (4.0-10.5)
[2017-03-21 16:38] LABS: ALT 57 U/L (19-67); AST 29 U/L (0-48); Albumin * 3.7 gm/dl (3.4-5.0); Alkaline Phosphatase * 87 U/L (50-170); Anion Gap 11.4 mmol/L (6.8-13.8); BUN/Creatinine Ratio 14.3 (9.0-21.6); Blood Urea Nitrogen 18 mg/dL (6-23); Ca. Corrected For Albumin 8.7 mg/dL (8.4-10.2); Calcium * 8.8 mg/dL (7.9-10.9); Carbon Dioxide 28.7 mmol/L (24-32.6); Chloride 103 mmol/L (97-106); Glucose * 102 mg/dL (70-110); Magnesium 2.2 mg/dL (1.2-2.8); Potassium 4.1 mmol/L (3.4-4.6); Sodium 139 mmol/L (132-142); Total Protein 7.5 gm/dL (6.2-8.2); Troponin I Less than 0.017 ng/ml (0.00-0.10)
[2017-03-21 16:46] VITALS: BP 116/86
== END 2017-03-21 16:52 | disposition home or self-care (01) ==
LOC: ER 15:45
DX: M79.2 Neuralgia and neuritis, unspecified (principal); M54.6 Pain in thoracic spine; F17.220 Nicotine dependence, chewing tobacco, uncomplicated; I10 Essential (primary) hypertension; K21.9 Gastro-esophageal reflux disease without esophagitis

== ENCOUNTER 2017-04-23 12:34 | Emergency (ER) | payer BC ==
[2017-04-23] MEDS ORDERED: amLODIPine BESYLATE 5 MG TABLET PO PRN (13:02)
--- NOTE | 2017-04-23 13:05 | ERNOTE ---
Headache ER HPI - General Presenting Symptoms: headache, other - persistent hypertension Time Seen by Provider: 04/23/17 12:39 Source: patient, family Exam Limitations: no limitations - Immun/Allergies/Home Medications Immunizations: IMMUNIZATION HX Immunizations Up to Date No History of Influenza Vaccine No Hx Pneumococcal Vaccination No Allergies/Adverse Reactions: Allergies No Known Allergies Allergy (Verified 04/23/17 12:45) Home Medications: HOME MEDICATIONS Lansoprazole [Prevacid] 30 mg PO DAILY #14 cap 03/06/17 [Last Taken Unknown] Metoprolol Succinate [Toprol Xl] 100 mg PO DAILY 04/23/17 [Last Taken Unknown] amLODIPine BESYLATE [Norvasc] 5 mg PO DAILY #30 tab 04/23/17 [Last Taken Unknown ] - History of Present Illness Narrative: Patient was changed from his lisinopril 10 mg to mid temporal help control blood pressure and he is blood pressure has actually gotten worse although his heart rate is significantly more improved down into the 70s and he gets a headache when his blood pressure goes up Timing of Headache: gradual Quality: Present: pressure Severity Maximum: Present: moderate Severity-Currently: Present: moderate Headache frequency: Present: occasional headaches - when his blood pressure goes up Associated Symptoms: Reports: denies symptoms Prior Treament: Reports: recently seen, treated by physician Review of Systems - Review of Systems Constitutional: Present: See HPI EYE: Present: no symptoms reported ENT: Present: no symptoms reported Respiratory: Present: no symptoms reported Cardiology: Present: no symptoms reported Gastrointestinal/Abdominal: Present: no symptoms reported Genitourinary: Present: no symptoms reported Musculoskeletal: Present: no symptoms reported Skin: Present: no symptoms reported Neurological: Present: no symptoms reported Endocrine: Present: no symptoms reported Hematologic/Lymphatic: Present: no symptoms reported Psych: Present: no symptoms reported - Patient's Past Medical History Patient History - Medical: GERD Patient History - Cardiac/Respiratory: Hypertension, Hyperlipidemia Patient History - Cancer: No Hx of Cancer Patient History - Surgical Procedures: Vasectomy, Orthopedic Patient History - Other: None - Family History Father Family History - Medical: , No pertinent hx Family History - Cardiac/Respiratory: No pertinent hx Family History - Cancer: Stomach Mother Family History - Medical: , No pertinent hx Family History - Cardiac/Respiratory: No pertinent hx Family History - Cancer: Breast - Social History Living Situations: home Abuse History: No History of abuse Psych History: No pertinent hx Smoking Status: Never smoker Have you smoked in the past 12 months: No Do you dip or chew tobacco: No Alcohol Use: none Drug Use: none - Immunizations Immunizations Up to Date: No Hx Pneumococcal Vaccination: No History of Influenza Vaccine: No Physical Exam - Physical Exam General Appearance: Present: wd/wn, alert, mild distress Head Exam: Present: normal inspection, no evidence of injury Eye Exam: Normal inspection: bilateral, PERRL: bilateral Ears, Nose, Throat: Present: normal ENT inspection, H, normal pharynx Neck: Present: normal inspection, nontender Respiratory: Present: no respiratory distress, normal breath sounds, no accessory muscle use, chest nontender, lungs clear Cardiovascular/Chest: Present: regular rate, rhythm, no murmur, normal peripheral pulses Gastrointestinal/Abdominal: Present: normal bowel sounds, nontender, nondistended, soft, no organomegaly Rectal Exam: Present: deferred Back Exam: Present: normal inspection, normal range of motion Extremity Exam: Present: normal inspection, non-tender, no edema, normal range of motion Neurological Exam: Present: alert, oriented, normal mood/affect Skin Exam: Present: normal color, warm/dry Lymphatic Exam: Present: no adenopathy ED Progress - Vital Signs Patient's Vital Signs:: I have reviewed the patient's vital signs. Vital Signs: Vital Signs 04/23/17 12:39 Temperature 36.8 C Pulse Rate 70 Respiratory 15 Rate Blood Pressure 149/111 O2 Sat by Pulse 95 Oximetry - Progress/Reassessment Chief Complaint: Headache Plan - Plan Plan: All the Metoprolol seems to be doing good job controlling his heart rate it is not doing an adequate job of controlling his blood pressure. He was switched from lisinopril to his beta froilan in an attempt to try to get a better handle on his blood pressure. As the lisinopril appeared to stop working we are going to keep him on his beta froilan and will add Norvasc 5 mg to the regimen and he will take periodic blood pressures and follow-up with his family doctor regarding increasing the dose or making other adjustments. Departure Clinical Impression: Hypertension Qualifiers: Hypertension type: essential hypertension Qualified Code(s): I10 - Essential ( primary) hypertension Headache Qualifiers: Headache type: other vascular headache Qualified Code(s): G44.1 - Vascular headache, not elsewhere classified - Departure Disposition: Home self-care Condition: Good Instructions: Hypertension, [id number] Referrals: Romelia Esqueda MD [Primary Care Provider] - Prescriptions: amLODIPine BESYLATE [Norvasc] 5 mg PO DAILY #30 tab
[2017-04-23 13:13] VITALS: BP 155/114
== END 2017-04-23 13:26 | disposition home or self-care (01) ==
LOC: ER 12:34
DX: I10 Essential (primary) hypertension (principal); G44.1 Vascular headache, not elsewhere classified
CPT/HCPCS: 99284